=== PATIENT | female | born 1970 | race Two or more races ===

== ENCOUNTER 2017-07-16 10:19 | Outpatient (CLI) | payer OTHER | END 2017-07-16 17:12 | disposition home or self-care (01) | LOC: RAD 501 10:19 | DX: M19.041 Primary osteoarthritis, right hand (principal); M19.042 Primary osteoarthritis, left hand ==

== ENCOUNTER → 2017-07-16 | Outpatient (CLI) | payer OTHER ==
[~2017-07-16] MED LIST: MEDROL DOSE PACK PO; NORVASC5 MG; SYNTHROID112 MCG; VASOTEC20 MG; ZYRTEC10 MG PO
== END | disposition home or self-care (01) ==
LOC: MAMO-SONO 11:12
DX: Z12.31 Encounter for screening mammogram for malignant neoplasm of breast (principal); Z87.898 Personal history of other specified conditions; N64.4 Mastodynia; N92.5 Other specified irregular menstruation